=== PATIENT | male | born 1960 | race Caucasian/White ===

== ENCOUNTER → 2017-02-28 | Outpatient (CLI) | payer BC ==
[~2017-02-28] MED LIST: CYCL10TA45 PO
== END ==
LOC: LAB 11:51
PROVIDERS: ATTEND Internal Medicine
DX: R19.7 Diarrhea, unspecified (principal)
CPT/HCPCS: 87045; 87046; 87077; 87324; 87328; 87329; 87449

== ENCOUNTER → 2017-10-16 | Outpatient (CLI) | payer BC ==
--- NOTE | 2017-10-16 09:47 | Diagnostic Imaging Report ---
PROCEDURE: MRI lumbar spine. TECHNIQUE: Multiplanar, multisequence MRI of the lumbar spine was performed without contrast. INDICATION: Low back pain with right groin pain. No prior studies are available for comparison. Curvature of the lumbar spine is normal. There is grade 1 spondylolisthesis of L5 on S1. This appears to be caused by bilateral pars defects at this level. The vertebral body heights and marrow signal are normal. No fracture or geographic marrow lesion is seen. There is some mild multilevel disc desiccation. There is also moderate disc space narrowing at L5-S1 compatible with degenerative disc disease. The conus is unremarkable at the L1 level. T12-L1: Central canal and neural foramina are widely patent. L1-2: Central canal and neural foramina are widely patent. There is some linear signal within the posterior annulus suggestive of annular tear. L2-3: There is some ligamentous thickening and facet changes but central canal and neural foramina appear to be widely patent. L3-4: There is a wide-based midline disc bulge which indents the ventral thecal sac. Mild narrowing of the central canal is also noted with AP diameter of 9 mm. There is some signal in the posterior annulus at the midline. No significant neuroforaminal narrowing is seen. There does appear to be some narrowing of the lateral recesses bilaterally, greater on the right. L4-5: There is ligamentous thickening as well as broad-based disc/osteophyte complex. This indents the ventral thecal sac and produces mild narrowing of the canal. There is also bilateral lateral recess narrowing and moderate bilateral neural foraminal narrowing. L5-S1: Spondylolisthesis and pars defects again seen. The central canal slightly patent. There is significant neural foraminal stenosis bilaterally, particularly on the left due to the spondylolisthesis. Paraspinous tissues are unremarkable. IMPRESSION: 1. Grade 1 spondylolisthesis L5 on S1 and bilateral pars defects. This does result in significant bilateral neural foraminal stenosis. 2. Generalized lumbar spondylosis with central canal, lateral recess and neural foraminal narrowing described level by level above. No acute compression fracture is detected. Dictated by: Dictated on workstation # [id number]
== END ==
LOC: RAD 08:24
PROVIDERS: ATTEND Internal Medicine
DX: M48.061 Spinal stenosis, lumbar region without neurogenic claudication (principal); M43.17 Spondylolisthesis, lumbosacral region; M99.73 Connective tissue and disc stenosis of intervertebral foramina of lumbar region; M51.26 Other intervertebral disc displacement, lumbar region; M51.37 Other intervertebral disc degeneration, lumbosacral region
CPT/HCPCS: 72148

== ENCOUNTER 2018-01-22 20:52 | Outpatient (CLI) | payer BC | END 2018-01-23 06:07 | disposition home or self-care (01) | LOC: SLEEP 20:52 | PROVIDERS: ATTEND Nurse Practitioner Family | DX: G47.33 Obstructive sleep apnea (adult) (pediatric) (principal) | CPT/HCPCS: 95810 ==

== ENCOUNTER → 2019-04-13 | Outpatient (CLI) | payer BC ==
--- NOTE | 2019-04-13 11:42 | Diagnostic Imaging Report ---
INDICATION: Shortness of breath and right rib pain. EXAMINATION: PA and lateral chest. FINDINGS: There is a patchy infiltrate in the periphery of the right midlung. There is some atelectasis at the left lung base. The heart size and pulmonary vascularity are normal. There are no effusions or pneumothoraces. IMPRESSION: Patchy infiltrate in the region of the lateral segment of the right middle lobe, suspicious for pneumonia. Dictated by: Dictated on workstation # [id number]
--- NOTE | 2019-04-13 11:48 | Diagnostic Imaging Report ---
INDICATION: Right rib pain. FINDINGS: Three views of the right ribs do not show any displaced fractures. There is no effusion or pneumothorax. There is a patchy infiltrate in the right lower lung that likely represents pneumonia. IMPRESSION: Right lower lung infiltrate, consistent with pneumonia. No abnormality is seen in the ribs. Dictated by: Dictated on workstation # [id number]
== END ==
LOC: RAD 10:41
PROVIDERS: ATTEND Nurse Practitioner
DX: R07.81 Pleurodynia (principal); R06.02 Shortness of breath
CPT/HCPCS: 71046; 71100

== ENCOUNTER → 2019-04-16 | Outpatient (CLI) | payer BC ==
--- NOTE | 2019-04-16 16:13 | Diagnostic Imaging Report ---
EXAMINATION: PA and lateral chest at 2:55 p.m. INDICATION: Pneumonia. FINDINGS: The heart size is within normal limits and stable when compared to 04/13/2019. The patchy area of pneumonia involving the lateral segment of the right middle lobe seen on the prior study is again evident and if anything slightly greater. Also, in the interval since the prior exam a small right pleural effusion has developed. In addition there now appears to be mild atelectasis/infiltrate in the left lung base. The upper lungs are generally clear. The mediastinum is not widened. The osseous structures are intact. IMPRESSION: The appearance of the chest has worsened somewhat since the prior exam as there is somewhat greater involvement of the right lung base by pneumonia/atelectasis. A small right pleural effusion has also developed and there now appears to be some atelectasis/infiltrate in the left lung base. Clinical follow-up is recommended. Dictated by: Dictated on workstation # [id number]
== END ==
LOC: RAD 14:39
PROVIDERS: ATTEND Nurse Practitioner
DX: J18.9 Pneumonia, unspecified organism (principal); J90 Pleural effusion, not elsewhere classified
CPT/HCPCS: 71046

== ENCOUNTER → 2019-04-21 | Outpatient (CLI) | payer BC ==
--- NOTE | 2019-04-21 10:22 | Diagnostic Imaging Report ---
EXAMINATION: CHEST (PA AND LATERAL) CLINICAL INDICATION: 59-year-old male, follow-up pneumonia. COMPARISON: April 16, 2019. FINDINGS: Stable overall appearance of the cardiomediastinal silhouette. There is no identified pneumothorax. There is a small right pleural effusion. There is airspace consolidation in the right lower lobe. Overall imaging appearance is unchanged since comparison study. IMPRESSION: 1. Unchanged small right pleural effusion and airspace consolidation in the right lower lobe. Dictated by: Dictated on workstation # [id number]
== END ==
LOC: RAD 09:43
PROVIDERS: ATTEND Physician Assistant
DX: J18.1 Lobar pneumonia, unspecified organism (principal); J90 Pleural effusion, not elsewhere classified
CPT/HCPCS: 71046

== ENCOUNTER → 2021-01-23 | Outpatient (CLI) | payer BC ==
--- NOTE | 2021-01-23 10:24 | Diagnostic Imaging Report ---
PROCEDURE: CT head without contrast. TECHNIQUE: Multiple contiguous axial images were obtained through the brain without the use of intravenous contrast. Auto Exposure Controls were utilized during the CT exam to meet ALARA standards for radiation dose reduction. INDICATION: Memory loss. Correlation is made with prior head CT from 07/11/2014. Ventricles and sulci are within normal limits. No sulcal effacement or midline shift is identified. No acute intra-axial or extra-axial hemorrhage is identified. There is some mucosal thickening of bilateral maxillary sinuses with opacification of multiple ethmoid air cells. There is some trace fluid or thickening of the frontal sinus. IMPRESSION: 1. No acute intracranial process detected. 2. Paranasal sinus disease. Dictated by: Dictated on workstation # [id number]
== END ==
LOC: RAD 10:15
PROVIDERS: ATTEND Internal Medicine
DX: J32.9 Chronic sinusitis, unspecified (principal); R41.3 Other amnesia
CPT/HCPCS: 70450